=== PATIENT | male | born 1950 | race Caucasian/White ===

== ENCOUNTER 2023-09-19 11:15 | Outpatient (CLI) | payer OTHER, SELFPAY ==
[2023-09-19 11:35] LABS: Appearance Urine Clear (Clear); Bilirubin Urine Negative (Negative); Blood Urine Negative (Negative); Color Urine Yellow (Yellow); Glucose Urine Negative (Negative); Ketones Urine Negative (Negative); Leukocyte Esterase Urine Negative (Negative); Nitrite Urine Negative (Negative); Protein Urine Negative (Negative); Urobilinogen Urine 0.2 (0.2-1.0)
== END 2023-09-19 11:16 | disposition home or self-care (01) ==
PROVIDERS: Visit Provider Internal Medicine
DX: C61 Malignant neoplasm of prostate (principal)
CPT/HCPCS: 81003; 87086